=== PATIENT | male | born 1985 | race Caucasian/White ===

== ENCOUNTER 2021-01-01 07:47 | Outpatient (CLI) | payer OTHER | END 2021-01-01 07:48 | disposition home or self-care (01) | LOC: TBSIIMAG 07:47 | PROVIDERS: ATTEND Family Medicine | DX: M25.511 Pain in right shoulder (principal); S29.012A Strain of muscle and tendon of back wall of thorax, initial encounter; S83.200A Bucket-handle tear of unspecified meniscus, current injury, right knee, initial encounter; S43.431A Superior glenoid labrum lesion of right shoulder, initial encounter ==

== ENCOUNTER 2021-01-07 12:22 | Outpatient (CLI) | payer OTHER | END 2021-01-07 12:23 | disposition home or self-care (01) | LOC: SCSRAD 12:22 | PROVIDERS: ATTEND Family Medicine | DX: M25.511 Pain in right shoulder (principal) ==

== ENCOUNTER 2021-02-13 13:20 | Outpatient (CLI) | payer OTHER ==
[2021-02-14 06:55] LABS: SARS-CoV-2 PCR by NAA Not Detected (NotDetected)
== END 2021-02-13 13:21 | disposition home or self-care (01) ==
LOC: LABBT 13:20
PROVIDERS: ATTEND Orthopaedic Surgery
DX: Z01.812 Encounter for preprocedural laboratory examination (principal); S43.431A Superior glenoid labrum lesion of right shoulder, initial encounter; Z20.822 Contact with and (suspected) exposure to COVID-19
CPT/HCPCS: U0003; U0005

== ENCOUNTER 2021-02-16 07:32 | Day surgery (SDC) | payer OTHER ==
[2021-02-15 12:58] VITALS: BMI 25.0
[2021-02-16] MEDS ORDERED: Midazolam HCl 2 mg/2 ml Vial ONE (08:11)
[2021-02-16] MEDS ORDERED: Fentanyl 100 MCG/2 ML VIAL ONE ×2 (08:12→09:13)
[2021-02-16] MEDS ORDERED: Fentanyl 100 MCG/2 ML VIAL IV PRN (08:33)
[2021-02-16] MEDS ORDERED: Zolpidem Tartrate 5 MG TAB PO PRN (08:45)
[2021-02-16] MEDS ORDERED: HYDROcodone/Acetaminophen 10/325 mg Tablet PO PRN ×2 (08:45)
[2021-02-16] MEDS ORDERED: Ropivacaine 0.2% 550 ML 550 ML NERVE BLCK SCH (08:45)
[2021-02-16] MEDS ORDERED: Ondansetron PF 4 MG/2 ML Vial IVP PRN (08:45)
[2021-02-16] MEDS ORDERED: Promethazine HCl 25 MG/ML VIAL IM PRN (08:45)
[2021-02-16] MEDS ORDERED: traMADol HCl 50 MG TAB PO PRN ×2 (08:45)
[2021-02-16] MEDS ORDERED: ePHEDrine Sulfate 50 MG/10 ML VIAL ONE (09:38)
[2021-02-16] MEDS ORDERED: Rocuronium Bromide 10 MG/ML (10ML VIAL) ONE (09:38)
[2021-02-16] MEDS ORDERED: Dexamethasone 20 MG/5 ML VIAL ONE (09:38)
[2021-02-16] MEDS ORDERED: PROPOFOL 200 MG/20 ML VIAL ONE (09:38)
[2021-02-16] MEDS ORDERED: Glycopyrrolate 0.2 MG/ML 5 ML SYRINGE ONE (09:38)
[2021-02-16] MEDS ORDERED: Ropivacaine 2% HCl/PF (20 MG/10 ML VIAL) ONE (09:38)
[2021-02-16] MEDS ORDERED: Ondansetron PF 4 MG/2 ML Vial ONE ×2 (09:38→14:05)
[2021-02-16] MEDS ORDERED: Ropivacaine 0.5% HCl/PF (150 MG/30 ML VIAL) ONE (09:38)
[2021-02-16] MEDS ORDERED: Lidocaine 1% PF 5 ML VIAL ONE (09:38)
[2021-02-16] MEDS ORDERED: Lidocaine 1% w/Epinephrine 1:100K 20 ML VIAL ONE (09:56)
[2021-02-16] MEDS ORDERED: Scopolamine 1.5 mg/72 hour Patch ONE (14:59)
== END 2021-02-16 16:10 | disposition home or self-care (01) ==
LOC: SDC 07:32
PROVIDERS: ATTEND Orthopaedic Surgery
PROC: 3E0T3BZ Introduction of Anesthetic Agent into Peripheral Nerves and Plexi, Percutaneous Approach (ICD-10-PCS; principal; 2021-02-16)
PROC: 0RQJ4ZZ Repair Right Shoulder Joint, Percutaneous Endoscopic Approach (ICD-10-PCS; principal; 2021-02-16)
PROC: 0LS30ZZ Reposition Right Upper Arm Tendon, Open Approach (ICD-10-PCS; principal; 2021-02-16)
DX: S43.431A Superior glenoid labrum lesion of right shoulder, initial encounter (principal); Z87.891 Personal history of nicotine dependence; G89.18 Other acute postprocedural pain
CPT/HCPCS: A4306; C1713; J0690; J1100; J2250; J2405; J2704; J2795; J3010